=== PATIENT | female | born 1950 | race Caucasian/White ===

== ENCOUNTER 2021-03-07 14:53 | Emergency (ER) | payer BC, SELFPAY ==
[2021-03-07 15:08] VITALS: BP 135/97; PULSE 91; RESP 18; TEMP 37.3; O2SAT 95
--- NOTE | 2021-03-07 16:06 | ED.EPISTAXIS ---
HPI - Epistaxis General Chief complaint: Epistaxis Stated complaint: nose bleed Time Seen by Provider: 03/07/21 15:43 Source: patient Mode of arrival: ambulatory Limitations: no limitations History of Present Illness HPI Narrative: This is a 70 year old female that presents to the ER for nosebleed present over the last couple of hours. Reports bleeding from the right nare. She has not had any trouble with nosebleeds before. She is on Eliquis for A. fib. She did stop it today though, because she is scheduled for cardiac ablation in 2 days. Denies fever. Related Data Home Medications Medication Instructions Recorded Confirmed amiodarone 200 mg PO DAILY 03/07/21 amlodipine 5 mg PO DAILY 03/07/21 apixaban [Eliquis] 5 mg PO BID 03/07/21 atorvastatin 10 mg PO DAILY 03/07/21 fluoxetine 40 mg PO DAILY 03/07/21 hydrochlorothiazide 12.5 mg PO DAILY 03/07/21 levothyroxine 50 mcg PO DAILY 03/07/21 losartan 100 mg PO DAILY 03/07/21 magnesium oxide 400 mg PO DAILY 03/07/21 Allergies Allergy/AdvReac Type Severity Reaction Status Date / Time No Known Allergies Allergy Verified 03/07/21 15:56 Review of Systems Review of Systems: Narrative: CONSTITUTIONAL: Denies fever ENT: Reports epistaxis All systems reviewed & are unremarkable except as noted in HPI and below PMFSH Past Medical History Medical History (Updated 03/07/21 @ 18:06 by Ivette Hollins PA-C) History of atrial fibrillation History of hyperlipidemia History of hypertension History of hypothyroidism Exam Narrative: Exam Narrative: GENERAL: Well-appearing, well-nourished, and in no acute distress. HEAD: Normocephalic, atraumatic. EYES: EOMI. ENT: Right-sided epistaxis. Mucous membranes moist. Small amount of blood in the posterior pharynx CHEST: Airway patent EXTREMITIES: Normal range of motion. No edema. SKIN: Warm, dry, no rash. NEURO: No focal deficits. Alert and oriented x3. PSYCH: Normal mood and affect Course Vital Signs Vital signs: Vital Signs Temperature 99.2 F 03/07/21 15:08 Pulse Rate 91 03/07/21 15:08 Respiratory Rate 18 03/07/21 15:08 Blood Pressure 135/97 H 03/07/21 15:08 Pulse Oximetry 95 03/07/21 15:08 Temperature 99.2 F 03/07/21 15:08 Pulse Rate 91 03/07/21 15:08 Respiratory Rate 18 03/07/21 15:08 Blood Pressure 135/97 H 03/07/21 15:08 Pulse Oximetry 95 03/07/21 15:08 Procedures Epistaxis Control right: Epistaxis Control Date: 03/07/21 Epistaxis Control Time: 18:04 Nose Prepped With: oxymetazoline Direct Inspection: unable to visualize Clots Removed by: blowing nose Cautery Used: none Device Inserted: nasal tampon Device Size: 3 Patient Tolerated Procedure: well and no complications MDM - Epistaxis MDM Narrative Medical decision making narrative: Patient presents to the ER for right sided epistaxis noted this afternoon. Vitals are stable. Hemoglobin is 15. Bleeding was controlled with Rhino Rocket. Patient will be started on oral antibiotics. She is to follow-up with ENT. She was given warnings to return to the ER Lab Data Attestation: I reviewed the patient's lab results. Result diagrams: 03/07/21 16:57 Labs: Lab Results 03/07/21 03/07/21 Range/Units 16:57 16:57 WBC 9.2 (4.5-10.0) K/mm3 RBC 4.69 (4.2-5.4) M/mm3 Hgb 15.0 (12.0-15.0) g/dL Hct 45.8 (37.0-47.0) % MCV 97.7 (80-100) fl MCH 32.0 (26-34) pg MCHC 32.8 (32-36) g/dl RDW 14.2 (11.5-14.5) % Plt Count 224 (150-375) k/mm3 MPV 11.2 H (7.4-10.4) fl Immature Gran % (Auto) 0.3 (0-0.5) % Neut % (Auto) 77.3 H (45.5-73.1) % Lymph % (Auto) 16.0 L (18.3-44.2) % Lea % (Auto) 5.5 (2.6-8.5) % Eos % (Auto) 0.5 (0-4.4) % Baso % (Auto) 0.4 (0.2-1.2) % Lymph # (Auto) 1.47 (0.9-3.2) K/mm3 Lea # (Auto) 0.5 (0.1-0.6) K/mm3 Eos # (Auto) 0.1 (0-0.3) K/mm3 Baso # (Auto) 0.0
[2021-03-07 17:06] LABS: Basophils Percent Auto 0.4 % (0.2-1.2); Eosinophils Absolute Auto 0.1 K/mm3 (0-0.3); Eosinophils Percent Auto 0.5 % (0-4.4); Hematocrit 45.8 % (37.0-47.0); Immature Granulocyte Absolute 0.03 K/mm3 (0.00-0.031); Immature Granulocyte Percent A 0.3 % (0-0.5); Lymphocytes Absolute Auto 1.47 K/mm3 (0.9-3.2); Mean Corpuscular HGB Conc 32.8 g/dl (32-36); Mean Corpuscular Volume 97.7 fl (80-100); Mean Platelet Volume 11.2 fl (7.4-10.4); Monocytes Absolute Auto 0.5 K/mm3 (0.1-0.6); Monocytes Percent Auto 5.5 % (2.6-8.5); Neutrophils Absolute Auto 7.1 K/mm3 (1.3-6.7); Neutrophils Percent Auto 77.3 % (45.5-73.1); Platelet Count Result 224 k/mm3 (150-375); Red Blood Count 4.69 M/mm3 (4.2-5.4); Red Cell Distribution Width 14.2 % (11.5-14.5); White Blood Count 9.2 K/mm3 (4.5-10.0)
[2021-03-07 17:15] LABS: INR 1.1; Prothrombin Time 15.2 Seconds (11.1-14.7)
[2021-03-07 17:16] LABS: Partial Thromboplastin Time 31.8 SECONDS (22.3-36.8)
[2021-03-07 18:16] VITALS: BP 126/83; PULSE 60; RESP 18; O2SAT 99
== END 2021-03-07 18:16 | disposition home or self-care (01) ==
PROVIDERS: Physician Assistant; Emergency Provider Emergency Medicine
DX: R04.0 Epistaxis (principal); I48.91 Unspecified atrial fibrillation; Z79.01 Long term (current) use of anticoagulants; E78.5 Hyperlipidemia, unspecified; I10 Essential (primary) hypertension; E03.9 Hypothyroidism, unspecified
CPT/HCPCS: 30901; 36415; 85025; 85610; 85730; 99283; A9270

== ENCOUNTER 2023-07-11 10:32 | Emergency (ER) | payer BC, SELFPAY ==
--- NOTE | ~2023-07-11 | XR_ITS ---
XR ankle LT min 3V 07/11/2023 10:59 INDICATION: Left ankle pain PROCEDURE: 4 views left ankle COMPARISON: No prior studies for comparison. FINDINGS: Fracture, dislocation or subluxation is not identified. The soft tissues appear within norm al limits. No foreign bodies are identified. There are degenerative calcaneal enthesophytes. IMPRESSION: 1: NO ACUTE BONE OR JOINT ABNORMALITY IDENTIFIED. Reviewed, dictated and finalized at location L.
--- NOTE | 2023-07-11 10:40 | ED.GENADULT ---
HPI - General Adult General Chief complaint: Extremity Injury, Lower Stated complaint: Left Foot Pain Time Seen by Provider: 07/11/23 10:44 Source: patient, RN notes reviewed and old records reviewed Mode of arrival: ambulatory Limitations: no limitations History of Present Illness HPI narrative: 72-year-old female presents to [facility] with complaints left ankle pain. Patient states pain to the lateral aspect. States that she was walking her friend's dogs when she rolled her ankle. Mild swelling noted lateral malleolus. No ecchymosis or erythema. Tenderness to palpation. Positive pedal pulse. Sensation intact in all 5 toes with capillary refill under 2 seconds Related Data Home Medications Medication Instructions Recorded Confirmed apixaban 5 mg tablet (Eliquis) 5 mg PO BID 03/07/21 07/11/23 atorvastatin 10 mg tablet 10 mg PO DAILY 03/07/21 07/11/23 fluoxetine 40 mg capsule 40 mg PO DAILY 03/07/21 07/11/23 hydrochlorothiazide 12.5 mg tablet 12.5 mg PO DAILY 03/07/21 07/11/23 losartan 100 mg tablet 100 mg PO DAILY 03/07/21 07/11/23 thyroid (pork) 60 mg tablet mg 07/11/23 Allergies Allergy/AdvReac Type Severity Reaction Status Date / Time latex Allergy Unknown Verified 07/11/23 10:45 Sulfa (Sulfonamide Allergy Unknown Verified 07/11/23 10:45 Antibiotics) Review of Systems Review of Systems: All systems reviewed & are unremarkable except as noted in HPI and below Constitutional: Constitutional: Reports no additional constitutional complaints Eyes: Eyes: Reports no additional eye complaints ENT: Reports system reviewed and no additional complaints, except as documented Cardiovascular: Cardiovascular: Reports no additional cardiovascular complaints, Denies chest pain and Denies dyspnea Respiratory: Respiratory: Reports no additional respiratory complaints, Denies chest congestion, Denies cough and Denies dyspnea Gastrointestinal: Gastrointestinal: Reports no additional gastrointestinal complaints, Denies abdominal pain, Denies nausea and Denies vomiting Musculoskeletal: Musculoskeletal: Reports as per HPI, Reports arthralgias and Reports joint swelling Integumentary/Breasts: Skin/Breast: Reports system reviewed and no additional complaints, except as docu Neurologic: Reports system reviewed and no additional complaints, except as documented Psychiatric: Psychiatric: Reports no additional psychiatric complaints Allergic/Immunologic: Allergic/Immunologic: Reports no additional allergic/immunologic complaints PMFSH Past Medical History Medical History History of atrial fibrillation History of hyperlipidemia History of hypertension History of hypothyroidism Social History Social History Smoking status: Never smoker Alcohol intake: current Substance use: never Comments At the time of my signature, I reviewed and agree with the nursing past medical, surgical, social, and family history. There is no relevant family history pertinent to the patient complaint. Exam Const: General: cooperative, healthy appearing, comfortable, no acute distress, well developed, alert and well nourished Nutritional Appearance: well nourished Orientation/consciousness: patient oriented x3 Limitations: no limitations HENMT: Head: normal to inspection Ears: hearing grossly normal bilaterally and external ears normal Face/Nose/Sinus: Normal external nose present, Normal nares present, Normal nasal mucous membranes and turbinates present, normal facial exam and face symmetric Face and sinus: normal facial exam and face symmetric Eyes: General: appearance normal, both eyes and all related structures Alignment and Position: alignment normal Periorbital: periorbital findings normal Pupils: Equal, round and reactive pupils present EOM: EOMs intact bilaterally Neck: Neck: normal visual inspection, full ROM
[2023-07-11 10:43] VITALS: BP 140/121; PULSE 72; RESP 16; TEMP 37.1; O2SAT 98
[2023-07-11 10:59] VITALS: BP 146/77; PULSE 74
== END 2023-07-11 11:25 | disposition home or self-care (01) ==
PROVIDERS: Emergency Provider Nurse Practitioner
DX: S93.402A Sprain of unspecified ligament of left ankle, initial encounter (principal); X50.9XXA Other and unspecified overexertion or strenuous movements or postures, initial encounter; Y93.K1 Activity, walking an animal; I48.91 Unspecified atrial fibrillation; E78.5 Hyperlipidemia, unspecified; I10 Essential (primary) hypertension; E03.9 Hypothyroidism, unspecified; Z79.01 Long term (current) use of anticoagulants
CPT/HCPCS: 73610; 99213; G0463

== ENCOUNTER 2024-06-02 15:43 | Emergency (ER) | payer BC, SELFPAY ==
--- NOTE | ~2024-06-02 | XR_ITS ---
XR wrist LT min 3V Ordering provider: Ni West APRN History: . fall . Comparison: None. FINDINGS: BONES: Lucency is seen in the lateral distal end of the radius suggestive of a fracture. Clinical blair luation for tenderness in the area advised. JOINT SPACES: Narrowing of the scaphotrapezial joint. SOFT TISSUES: Normal. IMPRESSION: Highly suggestive fracture in distal end of the radius laterally. Evaluation for tenderness in the ar ea advised. Reviewed, dictated and finalized at location A. IMPRESSION: Highly suggestive fracture in distal end of the radius laterally. Evaluation fo r tenderness in the area advised.
[2024-06-02 15:55] VITALS: BP 168/80; PULSE 68; RESP 18; TEMP 37.3; O2SAT 99
--- NOTE | 2024-06-02 16:08 | ED.UPPEXIN ---
HPI - Extremity Injury (Upper) General Chief Complaint: Extremity Injury, Upper Stated Complaint: FALL Time Seen by Provider: 06/02/24 16:10 Source: patient, RN notes reviewed and old records reviewed Mode of arrival: ambulatory Limitations: no limitations History of Present Illness HPI narrative: Patient presents with complaints of left wrist pain and swelling. She reports that she fell and caught herself on outstretched left hand approximately 2 hours ago. She took Tylenol prior to arrival. She has ice on the affected extremity. She does have some swelling and restricted range of motion, associated tenderness. Denies other injury and trauma. Related Data Home Medications Medication Instructions Recorded Confirmed apixaban 5 mg tablet (Eliquis) 5 mg PO BID 03/07/21 06/02/24 atorvastatin 10 mg tablet 10 mg PO DAILY 03/07/21 06/02/24 fluoxetine 40 mg capsule 40 mg PO DAILY 03/07/21 06/02/24 hydrochlorothiazide 12.5 mg tablet 12.5 mg PO DAILY 03/07/21 06/02/24 losartan 100 mg tablet 100 mg PO DAILY 03/07/21 06/02/24 thyroid (pork) 60 mg tablet 60 mg PO DAILY 07/11/23 06/02/24 Allergies Allergy/AdvReac Type Severity Reaction Status Date / Time latex Allergy Unknown Verified 06/02/24 15:45 Sulfa (Sulfonamide Allergy Unknown Verified 06/02/24 15:45 Antibiotics) Review of Systems Review of Systems: All systems reviewed & are unremarkable except as noted in HPI and below Constitutional: Constitutional: Reports no additional constitutional complaints ENT: Reports system reviewed and no additional complaints, except as documented Cardiovascular: Cardiovascular: Reports no additional cardiovascular complaints Respiratory: Respiratory: Reports no additional respiratory complaints Gastrointestinal: Gastrointestinal: Reports no additional gastrointestinal complaints Musculoskeletal: Musculoskeletal: Reports no additional musculoskeletal complaints and Reports as per HPI [facility] Past Medical History Medical History History of atrial fibrillation History of hyperlipidemia History of hypertension History of hypothyroidism Social History Social History Smoking status: Never smoker Alcohol intake: current Substance use: never Comments At the time of my signature, I reviewed and agree with the nursing past medical, surgical, social, and family history. There is no relevant family history pertinent to the patient complaint. Exam Const: General: cooperative, no acute distress, alert and awake Orientation/consciousness: oriented to person, oriented to place and oriented to time HENMT: Head: normal to inspection Resp: Effort & Inspection: normal respiratory effort and able to speak in complete sentences Auscultation: clear to auscultation bilaterally, no crackles, no rales, no rhonchi and no wheezes Cardio: Palpation: normal PMI Rate: regular rate Rhythm: regular rhythm Heart sounds: S1 normal heart sound present and S2 normal heart sound present Neuro: General: oriented to person, oriented to place and oriented to time Cranial nerves: Yes CN's II-XII intact bilaterally Extrem: Left upper extremity: normal capillary refill and wrist tenderness of the distal radius and of the distal ulna, swelling of the dorsal wrist and abnormal ROM held in an abnormal fashion in extension; ROM abnormal Psych: Appearance: grossly normal Thought process: Normal thought process present Insight: Good insight present (Psych) Judgement: Good judgement present (Psych) Course Course Level of Care: Express Care Visit Vital Signs Vital signs: Vital Signs Temperature 99.2 F 06/02/24 15:55 Pulse Rate 68 06/02/24 15:55 Respiratory Rate 18 06/02/24 15:55 Blood Pressure 168/80 H 06/02/24 15:55 Pulse Oximetry 99 06/02/24 15:55 Oxygen Delivery Room Air 06/02/24 15:55 Temperature 99.2 F
[2024-06-02] MEDS: IBUPROFEN 400 MG TABLET PO (16:47)
== END 2024-06-02 17:38 | disposition home or self-care (01) ==
PROVIDERS: Emergency Provider Nurse Practitioner Family
DX: S62.102A Fracture of unspecified carpal bone, left wrist, initial encounter for closed fracture (principal); W19.XXXA Unspecified fall, initial encounter; I48.91 Unspecified atrial fibrillation; E78.5 Hyperlipidemia, unspecified; I10 Essential (primary) hypertension; E03.9 Hypothyroidism, unspecified; Z79.01 Long term (current) use of anticoagulants
CPT/HCPCS: 29125; 73110; 99214; A4565; A9270; G0463